=== PATIENT | male | born 1970 | race Native Hawaiian/Other Pacific Islander ===

== ENCOUNTER 2017-01-29 17:04 | Inpatient (IN) | payer BC ==
[~2017-01-29] VITALS: Ht 182.9 cm; Wt 104.6 kg
[2017-01-29] MEDS ORDERED: IOHEXOL 350 MG/ML 10 ML VIAL (for RAD DIAG) IVCONTRAST ONE (17:05)
[2017-01-29 17:06] VITALS: BP 143/86; PULSE 113; RESP 18; TEMP 98.6; O2SAT 94
[2017-01-29] MEDS ORDERED: SODIUM CHLORIDE 0.9% FLUSH 10 ML FLUSH IVF PRN (17:30)
--- NOTE | 2017-01-29 17:54 | PD ---
HPI Chief Complaint: Syncope/Near-Syncope Time Seen by Provider: 17:13 Travel History International Travel<30 days: No Contact w/Intl Traveler<30days: No Traveled to known affect area: No History of Present Illness HPI 46-year-old male came to the emergency room with history of 1 week of shortness of breath and cough. Patient was seen by his primary care doctor yesterday and he was given a shot of antibiotic and a prescription of 500 mg Zithromax for 7 days. He was diagnosed with pneumonia by his primary care. Patient took the first dose of the antibiotic today. He says that he was walking when he got short of breath and passed out. When he had the syncopal episode he hit his head which has caused a bruising on his head at this point. Currently he is fully awake. He also says that for past couple days he's been having bilateral subcostal margin pain anteriorly especially after ambulation for some distance. Patient was tachycardic in triage. Sats were 94% on room air. Patient is not on any other medications. No long distance travel or procedures recently. No history of fever or chills. [facility] Past Medical History Narrative Medical Rest of his past medical, surgical, social and family history is reviewed from the nursing note. Allergies-Medications (Allergen,Severity, Reaction): Coded Allergies: azithromycin (Verified Allergy, Severe, SHORTNESS OF BREATH , 01/29/17) Comments List of his allergies reviewed from the nursing note. Narrative Medication Awaiting for the nurse to do the medical reconciliation Review of Systems Except as stated in HPI: all other systems reviewed are Neg Physical Exam Narrative GENERAL: Awake, alert, anxious, moderate distress SKIN: Focused skin assessment warm/dry. HEAD: Atraumatic. Normocephalic. Scalp contusion EYES: Pupils equal and round. No scleral icterus. No injection or drainage. ENT: No nasal bleeding or discharge. Mucous membranes pink and moist. NECK: Trachea midline. No JVD. CARDIOVASCULAR: Regular rate and rhythm. No murmur appreciated. RESPIRATORY: No accessory muscle use. Clear to auscultation. Breath sounds equal bilaterally. GASTROINTESTINAL: Abdomen soft, non-tender, nondistended. Hepatic and splenic margins not palpable. MUSCULOSKELETAL: No obvious deformities. No clubbing. No cyanosis. No edema. NEUROLOGICAL: Awake and alert. No obvious cranial nerve deficits. Motor grossly within normal limits. Normal speech. PSYCHIATRIC: Appropriate mood and affect; insight and judgment normal. Data Data Last Documented VS Vital Signs Date Time Temp Pulse Resp B/P (MAP) Pulse Ox O2 Delivery O2 Flow Rate FiO2 01/29/17:17 100 18 141/97 (112) 96 01/29/17 18:15 Room Air 01/29/17 17:06 98.6 Orders Orders Complete Blood Count With Diff (01/29/17:) Basic Metabolic Panel (Bmp) (01/29/17) Prothrombin Time / Inr (Pt) (01/29/17) Troponin I (01/29/17) Blood Culture (01/29/17) Iv Access Insert/Monitor (01/29/17) Electrocardiogram (01/29/17) Ecg Monitoring (01/29/17) Oximetry (01/29/17) Oxygen Administration (01/29/17:) Ct Pulmonary Angiogram (01/29/17:) Sodium Chloride 0.9% Flush (Ns Flush) (01/29/17 17:30) Ct Brain W/O Iv Contrast(Rout) (01/29/17 ) Heparin Infusion PROMISE.Q1H (01/29/17 19:26) Heparin Inj (Heparin Inj) (01/29/17 19:30) Heparin Inj (Heparin Inj) (01/30/17 01:30) Heparin Inj (Heparin Inj) (01/30/17 01:30) Heparin-D5w 25,000 U/250 Ml (Heparin-D5w (01/29/17 19:30) Act Partial Throm Time (Ptt) (01/29/17 19:26) Cbc No Diff, Includes Plts (01/29/17 19:26) Cbc No Diff, Includes Plts (02/01/17 06:00) Act Partial Throm Time (Ptt) (01/30/17 02:26) Occult Blood (Hemoccult) Stool (01/29/17 19:26) Labs Laboratory Tests Test 01/29/17 18:00 White Blood Count 6.5 TH/MM3 Red Blood Count 4.67 MIL/MM3 Hemoglobin 14.6 GM/DL Hematocrit 40.4 % Mean Corpuscular Volume 86.5 FL Mean Corpuscular Hemoglobin 31.1 PG Mean Corpuscular Hemoglobin Concent 36.0 % Red Cell Distribution Width 12.4 % Platelet Count 162 TH/MM3 Mean Platelet Volume 8.3 FL Neutrophils (%) (Auto) 72.3 % Lymphocytes (%) (Auto) 15.7 % Monocytes (%) (Auto) 9.9 % Eosinophils (%) (Auto) 1.5 % Basophils (%) (Auto) 0.6 % Neutrophils # (Auto) 4.7 TH/MM3 Lymphocytes # (Auto) 1.0 TH/MM3 Monocytes # (Auto) 0.6 TH/MM3 Eosinophils # (Auto) 0.1 TH/MM3 Basophils # (Auto) 0.0 TH/MM3 CBC Comment AUTO DIFF Differential Comment AUTO DIFF CONFIRMED Platelet Estimate NORMAL Platelet Morphology Comment NORMAL Prothrombin Time 11.3 SEC Prothromb Time International Ratio 1.0 RATIO Blood Urea Nitrogen 13 MG/DL Creatinine 0.75 MG/DL Random Glucose 100 MG/DL Calcium Level 8.7 MG/DL Sodium Level 139 MEQ/L Potassium Level 3.7 MEQ/L Chloride Level 109 MEQ/L Carbon Dioxide Level 20.5 MEQ/L Anion Gap 10 MEQ/L Estimat Glomerular Filtration Rate 112 ML/MIN Troponin I 0.27 NG/ML MDM Medical Decision Making Medical Screen Exam Complete: Yes Emergency Medical Condition: Yes Medical Record Reviewed: Yes Interpretation(s) Twelve-lead EKG was reviewed by me. Normal sinus rhythm, left axis deviation, poor R-wave progression, tachycardia, nonspecific ST-T wave changes. Heart rate of 108 bpm. Differential Diagnosis Orthostatic syncope, PE, pneumonia, cardiac arrhythmia, ACS Narrative Course 5:53 PM awaiting for the blood test results. I have ordered a CT pulmonary angiogram since my suspicion is high for PE given the symptoms. Next 7:50 PM blood test report is back. Troponin is elevated. Awaiting for CT scan of the head and CT pulmonary angiogram. Patient will be started on heparin bolus and drip based on the troponin. He will need to be admitted once the scan is done and reported. Procedures EKG Prior to Arrival: Nubia Mitchell MD Jan 29, 2017 17:54
[2017-01-29 18:15] VITALS: O2SAT 98
[2017-01-29 18:47] LABS: AUTOMATED NEUTROPHIL # 4.7 TH/MM3 (1.8-7.7); BASOPHIL % 0.6 % (0.0-2.0); EOSINOPHIL # 0.1 TH/MM3 (0-0.4); EOSINOPHIL % 1.5 % (0.0-4.0); HEMATOCRIT 40.4 % (39.0-51.0); LYMPH % 15.7 % (9.0-44.0); MEAN CELL VOLUME 86.5 FL (80.0-100.0); MEAN CORPUSCULAR HEMOGLOBIN 31.1 PG (27.0-34.0); MONO % 9.9 % (0.0-8.0); NEUT % 72.3 % (16.0-70.0); PLATELET COUNT 162 TH/MM3 (150-450); RED BLOOD COUNT 4.67 MIL/MM3 (4.50-5.90); RED CELL DISTRIBUTION WIDTH 12.4 % (11.6-17.2); WHITE BLOOD COUNT 6.5 TH/MM3 (4.0-11.0)
[2017-01-29 18:55] LABS: HEMO FLAGS AUTO DIFF
[2017-01-29 19:00] LABS: PROTHROMBIN TIME - PATIENT 11.3 SEC (9.8-11.6)
[2017-01-29 19:02] LABS: BICARBONATE 20.5 MEQ/L (21.0-32.0); POTASSIUM 3.7 MEQ/L (3.5-5.1)
[2017-01-29 19:17] VITALS: BP 141/97; PULSE 100; RESP 18; O2SAT 96
[2017-01-29 19:29] LABS: PLATELET ESTIMATE SMEAR NORMAL (NORMAL); PLATELET MORPHOLOGY NORMAL (NORMAL); SCAN/DIFF AUTO DIFF CONFIRMED
[2017-01-29] MEDS ORDERED: HEPARIN-D5W 25,000 U/250 ML 250 ML IV ONE (19:30)
[2017-01-29] MEDS ORDERED: HEPARIN SODIUM - IV 10,000 UNITS/10 ML VIAL IV ONE (19:30)
[2017-01-29 20:26] LABS: HEMATOCRIT 41.5 % (39.0-51.0); MEAN CORPUSCULAR HGB CONC 34.5 % (32.0-36.0); PLATELET COUNT 178 TH/MM3 (150-450); RED BLOOD COUNT 4.78 MIL/MM3 (4.50-5.90); RED CELL DISTRIBUTION WIDTH 12.8 % (11.6-17.2); REVIEW FLAG FINAL; WHITE BLOOD COUNT 6.7 TH/MM3 (4.0-11.0)
--- NOTE | 2017-01-29 20:32 | PD ---
Data Data Last Documented VS Vital Signs Date Time Temp Pulse Resp B/P (MAP) Pulse Ox O2 Delivery O2 Flow Rate FiO2 01/29/17:17 100 18 141/97 (112) 96 01/29/17 18:15 Room Air 01/29/17 17:06 98.6 Orders Orders Complete Blood Count With Diff (01/29/17 17:22) Basic Metabolic Panel (Bmp) (01/29/17:) Prothrombin Time / Inr (Pt) (01/29/17) Troponin I (01/29/17:) Blood Culture (01/29/17:) Iv Access Insert/Monitor (01/29/17) Electrocardiogram (01/29/17) Ecg Monitoring (01/29/17) Oximetry (01/29/17) Oxygen Administration (01/29/17:) Ct Pulmonary Angiogram (01/29/17:) Sodium Chloride 0.9% Flush (Ns Flush) (01/29/17 17:30) Ct Brain W/O Iv Contrast(Rout) (01/29/17 ) Heparin Infusion PROMISE.Q1H (01/29/17 19:26) Heparin Inj (Heparin Inj) (01/29/17 19:30) Heparin Inj (Heparin Inj) (01/30/17 01:30) Heparin Inj (Heparin Inj) (01/30/17 01:30) Heparin-D5w 25,000 U/250 Ml (Heparin-D5w (01/29/17 19:30) Act Partial Throm Time (Ptt) (01/29/17 19:26) Cbc No Diff, Includes Plts (01/29/17 19:26) Cbc No Diff, Includes Plts (02/01/17 06:00) Act Partial Throm Time (Ptt) (01/30/17 02:26) Occult Blood (Hemoccult) Stool (01/29/17 19:26) Iohexol 350 Inj (Omnipaque 350 Inj) (01/29/17 17:05) Admit Order (Ed Use Only) (01/29/17 22:14) Labs Laboratory Tests Test 01/29/17 18:00 01/29/17 19:55 White Blood Count 6.5 TH/MM3 6.7 TH/MM3 Red Blood Count 4.67 MIL/MM3 4.78 MIL/MM3 Hemoglobin 14.6 GM/DL 14.3 GM/DL Hematocrit 40.4 % 41.5 % Mean Corpuscular Volume 86.5 FL 87.0 FL Mean Corpuscular Hemoglobin 31.1 PG 30.0 PG Mean Corpuscular Hemoglobin Concent 36.0 % 34.5 % Red Cell Distribution Width 12.4 % 12.8 % Platelet Count 162 TH/MM3 178 TH/MM3 Mean Platelet Volume 8.3 FL 8.0 FL Neutrophils (%) (Auto) 72.3 % Lymphocytes (%) (Auto) 15.7 % Monocytes (%) (Auto) 9.9 % Eosinophils (%) (Auto) 1.5 % Basophils (%) (Auto) 0.6 % Neutrophils # (Auto) 4.7 TH/MM3 Lymphocytes # (Auto) 1.0 TH/MM3 Monocytes # (Auto) 0.6 TH/MM3 Eosinophils # (Auto) 0.1 TH/MM3 Basophils # (Auto) 0.0 TH/MM3 CBC Comment AUTO DIFF Differential Comment AUTO DIFF CONFIRMED Platelet Estimate NORMAL Platelet Morphology Comment NORMAL Prothrombin Time 11.3 SEC Prothromb Time International Ratio 1.0 RATIO Blood Urea Nitrogen 13 MG/DL Creatinine 0.75 MG/DL Random Glucose 100 MG/DL Calcium Level 8.7 MG/DL Sodium Level 139 MEQ/L Potassium Level 3.7 MEQ/L Chloride Level 109 MEQ/L Carbon Dioxide Level 20.5 MEQ/L Anion Gap 10 MEQ/L Estimat Glomerular Filtration Rate 112 ML/MIN Troponin I 0.27 NG/ML Activated Partial Thromboplast Time 25.[address] [facility] Medical Record Reviewed: Yes Supervised Visit with [place]: No Interpretation(s) Last Impressions CT Angiography 01/29/17 1722 Signed Impressions: Service Date/Time: Sunday, January 29, 2017 20:12 - CONCLUSION: Extensive PE. Ru Barahona MD Head CT 01/29/17 0000 Signed Impressions: Service Date/Time: Sunday, January 29, 2017 20:07 - CONCLUSION: Unremarkable study. Ru Barahona MD Narrative Course During the course of the patients emergency department visit, the patients history, examination, and differential diagnosis were reviewed with the patient. The patient had IV access obtained and blood work sent for analysis. The patient was placed on a manager cardiac with oximetry and blood pressure monitoring. The patient's case was checked out to me by Dr. Robins at the conclusion of her shift. Please see her complete history and physical. The patient reportedly has been experiencing chest pain and shortness of breath. The patient has been on antibiotic area the patient had a syncopal event earlier today. Dr. Robins recommended admission for continued evaluation and treatment. The patient was initially provided a bolus of heparin, however the heparin drip was held until the patient had a completed CT scan to rule out intracranial hemorrhage. The patients laboratory studies were reviewed and remarkable for a white count of 6.5, hemoglobin 14.6, platelets 162 with 72.3 neutrophils, monocytes 9.9. Basic metabolic profile is remarkable for chloride of 109, CO2 20.5, troponin I is elevated at 0.27 which could be related to a non-STEMI, versus PE. A CTA to rule out PE was ordered. PT 11.3, PTT 25.6. Radiology studies were reviewed and remarkable for [a CT scan of the brain that shows no acute abnormality. CTA to rule out PE shows extensive pulmonary embolism. The patient's heparin drip was started. The patients results were discussed with the patient, including the plan of care. I explained that further testing and/ or monitoring is indicated based on the patients history, examination, and/ or laboratory findings. Therefore, I recommended admission for additional evaluation. The patient expressed understanding and was agreeable with this plan. The patient was admitted to the hospital in stable condition and [facility] Physician Communication Physician Communication The patient's case is discussed with Dr. Rojas who did agree to admit the patient for further evaluation and treatment at this time. Diagnosis Primary Impression: Pulmonary embolism Qualified Codes: I26.99 - Other pulmonary embolism without acute cor pulmonale Admitting Information Admitting Physician Requests: Admit Sonia Santiago MD Jan 29, 2017 20:31
[2017-01-29 20:37] LABS: APTT (PATIENT) 25.6 SEC (24.3-30.1)
--- NOTE | 2017-01-29 20:43 | RADRPT ---
EXAM DATE/TIME: 01/29/2017 20:12 [facility] COMPARISON: No previous studies available for comparison. INDICATIONS : Short of breath, embolism. IV CONTRAST: 69 cc Omnipaque 350 (iohexol) IV RADIATION DOSE: 19.97 CTDIvol (mGy) MEDICAL HISTORY : None SURGICAL HISTORY : None. ENCOUNTER: Initial ACUITY: 1 day PAIN SCALE: 2/10 LOCATION: Bilateral chest TECHNIQUE: Volumetric scanning of the chest was performed using a pulmonary embolism protocol MIP images were re constructed. Using automated exposure control and adjustment of the mA and/or kV according to patien t size, radiation dose was kept as low as reasonably achievable to obtain optimal diagnostic quality images. DICOM format image data is available electronically for review and comparison. Follow-up recommendations for detected pulmonary nodules are based at a minimum on nodule size and pa tient risk factors according to Fleischner Society Guidelines. FINDINGS: There is extensive pulmonary embolus involving bilateral upper lobe lower lobe pulmonary arterie s in addition to bilateral main pulmonary arteries worse on the right. There is slight infiltrate in right lower lobe and lingula. There is no pleural effusion. CONCLUSION: Extensive PE. Ru Barahona MD on January 29, 2017 at 20:40 Board Certified Radiologist. This report was verified electronically.
--- NOTE | 2017-01-29 20:48 | RADRPT ---
EXAM DATE/TIME: 01/29/2017 20:07 [facility] COMPARISON: No previous studies available for comparison. INDICATIONS : Head pain due to fall and syncopal episode. RADIATION DOSE: 56.35 CTDIvol (mGy) MEDICAL HISTORY : None SURGICAL HISTORY : None. ENCOUNTER: Initial ACUITY: 1 day PAIN SCALE: 3/10 LOCATION: Bilateral cranial TECHNIQUE: Multiple contiguous axial images were obtained of the head. Using automated exposure control and adj ustment of the mA and/or kV according to patient size, radiation dose was kept as low as reasonably a chievable to obtain optimal diagnostic quality images. DICOM format image data is available electro nically for review and comparison. FINDINGS: There is no evidence for intracranial hemorrhage, mass effect, mass lesions, edema, or extra-axial fl uid collections. The visualized bony structures appear intact. The ventricles are normal size for t he patient's age. There are no signs of acute infarction for technique. CONCLUSION: Unremarkable study. Ru Barahona MD on January 29, 2017 at 20:46 Board Certified Radiologist. This report was verified electronically.
[2017-01-29] MEDS ORDERED: NALOXONE HCL 0.4 MG/ML AMP IV PUSH PRN (22:45)
[2017-01-29] MEDS ORDERED: SODIUM CHLORIDE 0.9% FLUSH 10 ML FLUSH IV FLUSH PRN (22:45)
[2017-01-29 23:44] VITALS: BP 116/87; PULSE 102; RESP 16; O2SAT 96
[2017-01-30] VITALS (9 sets, daily range): BP systolic 116–138; BP diastolic 80–88; PULSE 97–108; RESP 18–24; TEMP 97.9–99.3; O2SAT 95–96
[2017-01-30] MEDS ORDERED: HEPARIN SODIUM - IV 10,000 UNITS/10 ML VIAL IV PRN ×2 (01:30)
[2017-01-30 03:40] LABS: AUTOMATED NEUTROPHIL # 3.7 TH/MM3 (1.8-7.7); BASOPHIL % 0.4 % (0.0-2.0); EOSINOPHIL # 0.1 TH/MM3 (0-0.4); EOSINOPHIL % 2.1 % (0.0-4.0); HEMATOCRIT 40.6 % (39.0-51.0); HEMO FLAGS DIFF FINAL; LYMPH % 25.2 % (9.0-44.0); LYMPHOCYTE # 1.5 TH/MM3 (1.0-4.8); MEAN CELL VOLUME 87.2 FL (80.0-100.0); MEAN CORPUSCULAR HEMOGLOBIN 30.3 PG (27.0-34.0); MEAN CORPUSCULAR HGB CONC 34.8 % (32.0-36.0); MONO % 10.7 % (0.0-8.0); NEUT % 61.6 % (16.0-70.0); PLATELET COUNT 164 TH/MM3 (150-450); RED BLOOD COUNT 4.65 MIL/MM3 (4.50-5.90); RED CELL DISTRIBUTION WIDTH 12.6 % (11.6-17.2)
[2017-01-30 03:50] LABS: POTASSIUM 3.7 MEQ/L (3.5-5.1)
[2017-01-30 03:55] LABS: APTT (PATIENT) 36.4 SEC (24.3-30.1)
--- NOTE | 2017-01-30 05:58 | HHI.HP ---
[facility] Noel Robles MD Admission Diagnosis Pulmonary embolism Diagnoses: (1) Pulmonary embolism Chief Complaint: shortness of breath Travel History International Travel<30 Days: No Contact w/Intl Traveler <30 Da: No Traveled to Known Affected Are: No History of Present Illness Written by Nohemi Marmolejo, acting as scribe for Dr. Rojas on 01/30/17 at 05:58. Since last has had severe shortness of breath that worsened over the weekend. PCP placed him on antibiotics on Saturday but symptoms did not improve. No recent extended travel or surgeries. Denies fevers. He had a syncopal episode yesterday and hit his head - head CT in ED was negative. Review of Systems Except as stated in HPI: all other systems reviewed are Neg Past Family Social History Past Medical History Nephrolithiasis 3 years ago Seasonal allergies Denies hypertension, diabetes mellitus, CAD, CHF, respiratory problems, liver problems, DVT, PE, CVA, seizures, thyroid dysfunction, or cancers . Past Surgical History Never . Reported Medications Vitamins . Allergies: Coded Allergies: azithromycin (Verified Allergy, Severe, SHORTNESS OF BREATH , 01/29/17) Active Ordered Medications Current Medications Sodium Chloride (NS Flush) 2 ml UNSCH PRN IVF FLUSH AFTER USING IV ACCESS; Start 01/29/17 at 17:30; Stop 01/29/17 at 22:41; Status DC Heparin Sodium (Porcine) (Heparin Inj) 8,000 units ONCE ONCE IV Last administered on 01/29/17t 19:41; Start 01/29/17 at 19:30; Stop 01/29/17 at 19 :31; Status DC Heparin Sodium (Porcine) (Heparin Inj) 5,000 units UNSCH PRN IV APTT LESS THAN 25; Start 01/30/17 at 01:30 Heparin Sodium (Porcine) (Heparin Inj) 2,500 units UNSCH PRN IV APTT 25 TO 39; Start 01/30/17 at 01:30 Heparin Sodium/ Dextrose 250 ml @ 10 mls/hr TITRATE ONCE IV Last administered on 01/29/17 22:20; Start 01/29/17 at 19:30; Stop 01/30/17 at 20 :29 Iohexol (Omnipaque 350 Inj) 69 ml STK-MED ONCE IVCONTRAST Last administered on 01/29/17t 17:05; Start 01/29/17 at 17:05; Stop 01/29/17 at 20:20; Status DC Sodium Chloride (NS Flush) 2 ml UNSCH PRN IV FLUSH FLUSH AFTER USING IV ACCESS ; Start 01/29/17 at 22:45 Sodium Chloride (NS Flush) 2 ml BID IV FLUSH ; Start 01/30/17 at 09:00 Naloxone HCl (Narcan Inj) 0.4 mg UNSCH PRN IV PUSH SEE LABEL COMMENTS; Start 01/29/17 at 22:45 . Family History Diabetes Mellitus Son with asthma Denies family history of frequent miscarriages . 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 Physical Exam Vital Signs Vital Signs Date Time Temp Pulse Resp B/P (MAP) Pulse Ox O2 Delivery O2 Flow Rate FiO2 01/30/17 04:33 97.9 102 18 116/80 (92) 96 01/29/17 23:44 102 16 116/87 (97) 96 Room Air 01/29/17 23:44 01/29/17 19:17 100 18 141/97 (112) 96 01/29/17 18:15 82 18 98 Room Air 01/29/17 18:15 98 Room Air 01/29/17 18:15 98 Room Air 01/29/17 17:06 98.6 113 18 143/86 (105) 94 Room Air Physical Exam GENERAL: This is a male patient, in no apparent distress. SKIN: No rashes, ecchymoses or lesions. Cool and dry. HEAD: Normocephalic. Small area of bruising. EYES: No scleral icterus. No injection or drainage. ENT: Nose without bleeding, purulent drainage. Airway patent. NECK: Trachea midline. CARDIOVASCULAR: Regular rate and rhythm without murmurs, gallops, or rubs. RESPIRATORY: Clear to auscultation. Breath sounds equal bilaterally. No wheezes , rales, or rhonchi. GASTROINTESTINAL: Abdomen soft, non-tender, nondistended. No guarding. MUSCULOSKELETAL: Extremities without clubbing, cyanosis, or edema. No calf tenderness. NEUROLOGICAL: Awake and alert. Motor and sensory grossly within normal limits. Normal speech. . Laboratory Laboratory Tests Test 01/29/17 18:00 01/29/17 19:55 01/30/17 03:17 White Blood Count 6.5 6.7 6.0 Red Blood Count 4.67 4.78 4.65 Hemoglobin 14.6 14.3 14.1 Hematocrit 40.4 41.5 40.6 Mean Corpuscular Volume 86.5 87.0 87.2 Mean Corpuscular Hemoglobin 31.1 30.0 30.3 Mean Corpuscular Hemoglobin Concent 36.0 34.5 34.8 Red Cell Distribution Width 12.4 12.8 12.6 Platelet Count 162 178 164 Mean Platelet Volume 8.3 8.0 8.2 Neutrophils (%) (Auto) 72.3 61.6 Lymphocytes (%) (Auto) 15.7 25.2 Monocytes (%) (Auto) 9.9 10.7 Eosinophils (%) (Auto) 1.5 2.1 Basophils (%) (Auto) 0.6 0.4 Neutrophils # (Auto) 4.7 3.7 Lymphocytes # (Auto) 1.0 1.5 Monocytes # (Auto) 0.6 0.6 Eosinophils # (Auto) 0.1 0.1 Basophils # (Auto) 0.0 0.0 CBC Comment AUTO DIFF DIFF FINAL Differential Comment AUTO DIFF CONFIRMED Platelet Estimate NORMAL Platelet Morphology Comment NORMAL Prothrombin Time 11.3 Prothromb Time International Ratio 1.0 Blood Urea Nitrogen 13 9 Creatinine 0.75 0.68 Random Glucose 100 95 Calcium Level 8.7 8.4 Sodium Level 139 141 Potassium Level 3.7 3.7 Chloride Level 109 109 Carbon Dioxide Level 20.5 24.0 Anion Gap 10 8 Estimat Glomerular Filtration Rate 112 126 Troponin I 0.27 Activated Partial Thromboplast Time 25.6 36.4 Date/Time Source Procedure Growth Status 01/29/17 18:00 Blood Peripheral Aerobic Blood Culture Pending Received 01/29/17 18:00 Blood Peripheral Anaerobic Blood Culture Pending Received Result Diagram: 01/30/177 01/30/[address] Angiography 01/29/17 1132 Signed Impressions: Service Date/Time: Sunday, January 29, 2017 20:12 - CONCLUSION: Extensive PE. Ru Barahona MD Head CT 01/29/17 0000 Signed Impressions: Service Date/Time: Sunday, January 29, 2017 20:07 - CONCLUSION: Unremarkable study. MD Frankie Miller VTE Risk Assessment Frankie VTE Risk Assessment: Mod/High Risk (score >= 2) Caprini Risk Assessment Model Point Value = 1 Point Value = 2 Point Value = 3 Point Value = 5 Age 41-60 Minor surgery BMI > 25 kg/m2 Swollen legs Varicose veins or History of unexplained or recurrent spontaneous Oral contraceptives or hormone replacement Sepsis (< 1 month) Serious lung disease, including pneumonia (< 1 month) Abnormal pulmonary function Acute myocardial infarction Congestive heart failure (< 1 month) History of inflammatory bowel disease Medical patient at bed rest Age 61-74 Arthroscopic surgery Major open surgery (> 45 min) Laparoscopic surgery (> 45 min) Malignancy Confined to bed (> 72 hours) Immobilizing plaster cast Central venous access Age >= 75 History of VTE Family history of VTE Factor V Leiden Prothrombin [id number] Lupus anticoagulant Anticardiolipin antibodies Elevated serum homocysteine Heparin-induced thrombocytopenia Other congenital or acquired thrombophilia Stroke (< 1 month) Elective arthroplasty Hip, pelvis, or leg fracture Acute spinal cord injury (< 1 month) Prophylaxis Regimen Total Risk Factor Score Risk Level Prophylaxis Regimen 0-1 Low Early ambulation 2 Moderate Order ONE of the following: *Sequential Compression Device (SCD) *Heparin 5000 units SQ BID 3-4 Higher Order ONE of the following medications: *Heparin 5000 units SQ TID *Enoxaparin/Lovenox 40 mg SQ daily (WT < 150 kg, CrCl > 30 mL/min) *Enoxaparin/Lovenox 30 mg SQ daily (WT < 150 kg, CrCl > 10-29 mL/min) *Enoxaparin/Lovenox 30 mg SQ BID (WT < 150 kg, CrCl > 30 mL/min) AND/OR *Sequential Compression Device (SCD) 5 or more Highest Order ONE of the following medications: *Heparin 5000 units SQ TID (Preferred with Epidurals) *Enoxaparin/Lovenox 40 mg SQ daily (WT < 150 kg, CrCl > 30 mL/min) *Enoxaparin/Lovenox 30 mg SQ daily (WT < 150 kg, CrCl > 10-29 mL/min) *Enoxaparin/Lovenox 30 mg SQ BID (WT < 150 kg, CrCl > 30 mL/min) AND *Sequential Compression Device (SCD) Assessment and Plan Problem List: (1) Pulmonary embolism ICD Code: I26.99 - Other pulmonary embolism without acute cor pulmonale Assessment and Plan 46 year-old male with progressively worsening shortness of breath: Bilateral pulmonary embolism, extensive - CT PA showed extensive bilateral PE - Heparin drip - bed rest - monitor vital signs q4h - consult mixer driver to check for genetic disorders causing hypercoagulability - continuous cardiac telemetry to monitor for cardiac arrhythmias and to monitor heart rate - bilateral lower extremity Doppler to evaluate for DVT Syncope secondary to extensive PE Troponin I elevation likely secondary to right heart strain - check echocardiogram to evaluate cardiac structure and function given suspected right heart strain - will recheck Troponin I level - follow results Discussed Condition With ER physician and patient . Physician Certification 2 Midnight Certification Type: Admission for Inpatient Services Order for Inpatient Services The services are ordered in accordance with Medicare regulations or non- Medicare payer requirements, as applicable. In the case of services not specified as inpatient-only, they are appropriately provided as inpatient services in accordance with the 2-midnight benchmark. Estimated LOS (days): 3 days is the estimated time the patient will need to remain in the hospital, assuming treatment plan goals are met and no additional complications. Post-Hospital Plan: Home Problem Qualifiers (1) Pulmonary embolism: Nohemi Marmolejo Jan 30, 2017 05:58
--- NOTE | 2017-01-30 09:00 | RADRPT ---
EXAM DATE/TIME: 01/30/2017 07:44 [place] COMPARISON: No previous studies available for comparison. INDICATIONS : Extensive pulmonary embolism. MEDICAL HISTORY : Renal calculi. Pulmonary embolism. Cardiac disorders. Chest pain. Pneumonia. SURGICAL HISTORY : None. ENCOUNTER: Initial ACUITY: 1 day PAIN SCORE: 0/10 LOCATION: Bilateral leg. TECHNIQUE: Venous ultrasound of the left and right leg was performed from the inguinal ligament to the proximal calf. Real-time, color Doppler and spectral tracing, compression and augmentation techniques were us ed. FINDINGS: RIGHT LEG: There is normal compressibility of the deep venous system from the inguinal region to the proximal ca lf. No echogenic clot is seen in the lumen of the common femoral, femoral, popliteal, and posterior tibial veins. There is a normal response of the venous system to proximal and distal augmentation an d respiration. LEFT LEG: Deep venous system of the left lower extremity is incompletely compressible throughout its course. On Doppler interrogation, there is some flow identified in the SMV from the bifurcation to the mid vess el with no flow identified in the lower half of the SFV, trace flow in the popliteal and no detectabl e flow in the trifurcation tributaries. CONCLUSION: 1. Extensive deep venous thrombosis throughout the left lower extremity from the femoral bifurcation peripherally to the trifurcation tributaries. 2. Thrombus is nonocclusive from the mid SFV and centrally to the bifurcation, trace flow in the popl iteal and occlusive disease in the trifurcation tributaries and the peripheral SFV. James Cardona MD on January 30, 2017 at 8:52 Board Certified Radiologist. This report was verified electronically.
--- NOTE | 2017-01-30 11:06 | HHI.PR ---
Subjective History of Present Illness Patient feel better today no acute issue. Review of Systems Constitutional Constitutional Remarks All ROS Normal. Vitals/Results Vital Signs Vital Signs Date Time Temp Pulse Resp B/P (MAP) Pulse Ox O2 Delivery O2 Flow Rate FiO2 01/30/17 08:25 98.7 101 24 138/83 (101) 95 01/30/17 04:33 97.9 102 18 116/80 (92) 96 01/29/17 23:44 102 16 116/87 (97) 96 Room Air 01/29/17 23:44 01/29/17 19:17 100 18 141/97 (112) 96 01/29/17 18:15 82 18 98 Room Air 01/29/17 18:15 98 Room Air 01/29/17 18:15 98 Room Air 01/29/17 17:06 98.6 113 18 143/86 (105) 94 Room Air CBC/BMP: 01/30/17 0317 01/30/17 0317 Lab Results Laboratory Tests Test 01/29/17 18:00 01/29/17 19:55 01/30/17 03:17 White Blood Count 6.5 TH/MM3 6.7 TH/MM3 6.0 TH/MM3 Red Blood Count 4.67 MIL/MM3 4.78 MIL/MM3 4.65 MIL/MM3 Hemoglobin 14.6 GM/DL 14.3 GM/DL 14.1 GM/DL Hematocrit 40.4 % 41.5 % 40.6 % Mean Corpuscular Volume 86.5 FL 87.0 FL 87.2 FL Mean Corpuscular Hemoglobin 31.1 PG 30.0 PG 30.3 PG Mean Corpuscular Hemoglobin Concent 36.0 % 34.5 % 34.8 % Red Cell Distribution Width 12.4 % 12.8 % 12.6 % Platelet Count 162 TH/MM3 178 TH/MM3 164 TH/MM3 Mean Platelet Volume 8.3 FL 8.0 FL 8.2 FL Neutrophils (%) (Auto) 72.3 % 61.6 % Lymphocytes (%) (Auto) 15.7 % 25.2 % Monocytes (%) (Auto) 9.9 % 10.7 % Eosinophils (%) (Auto) 1.5 % 2.1 % Basophils (%) (Auto) 0.6 % 0.4 % Neutrophils # (Auto) 4.7 TH/MM3 3.7 TH/MM3 Lymphocytes # (Auto) 1.0 TH/MM3 1.5 TH/MM3 Monocytes # (Auto) 0.6 TH/MM3 0.6 TH/MM3 Eosinophils # (Auto) 0.1 TH/MM3 0.1 TH/MM3 Basophils # (Auto) 0.0 TH/MM3 0.0 TH/MM3 CBC Comment AUTO DIFF DIFF FINAL Differential Comment AUTO DIFF CONFIRMED Platelet Estimate NORMAL Platelet Morphology Comment NORMAL Prothrombin Time 11.3 SEC Prothromb Time International Ratio 1.0 RATIO Blood Urea Nitrogen 13 MG/DL 9 MG/DL Creatinine 0.75 MG/DL 0.68 MG/DL Random Glucose 100 MG/DL 95 MG/DL Calcium Level 8.7 MG/DL 8.4 MG/DL Sodium Level 139 MEQ/L 141 MEQ/L Potassium Level 3.7 MEQ/L 3.7 MEQ/L Chloride Level 109 MEQ/L 109 MEQ/L Carbon Dioxide Level 20.5 MEQ/L 24.0 MEQ/L Anion Gap 10 MEQ/L 8 MEQ/L Estimat Glomerular Filtration Rate 112 ML/MIN 126 ML/MIN Troponin I 0.27 NG/ML 0.12 NG/ML Activated Partial Thromboplast Time 25.6 SEC 36.4 SEC Microbiology Microbiology 01/29/17 Aerobic Blood Culture, Received Pending 01/29/17 Anaerobic Blood Culture, Received Pending 01/29/17 Aerobic Blood Culture, Received Pending 01/29/17 Anaerobic Blood Culture, Received Pending Physical Exam General General Appearance: Well Developed, Well Nourished, No Acute Distress, Comfortable Eyes Eye Exam: Pupils Equal, Pupils Reactive, Sclera White, Extraocular Movement Intact Throat Throat Exam: Oral Mucosa [place] & Moist, Oral Pharynx Normal Neck Neck Exam: Neck Supple, Trachea Midline Pulmonary Resp Exam: Clear Bilaterally, Breath Sounds Equal, No Distress Cardiology CV Exam: Regular, Normal Sinus Rhythm Gastrointestinal/Abdomen GI Exam: Soft, Non-Tender, Bowel Sounds Present Musculoskeletal MS Exam: Joints Intact Integumentary Skin Exam: Clear, Warm, Dry, Intact, Normal Turgor Extremeties Extremities Exam: No Edema Neurologic Neuro Exam: Alert, Awake, Oriented, Speech Clear, Moving All Extremities, History Instructor Equal, No Focal Deficits Psychiatric Psych Exam: Appropriate Responses VTE Prophylaxis VTE Prophylaxis Meds: Heparin PUD Prophylasis PUD Prophylaxis: Protonix Assessment/Plan Problem List: (1) Pulmonary embolism ICD Codes: I26.99 - Other pulmonary embolism without acute cor pulmonale Assessment/Plan Assessment and Plan (1) Pulmonary embolism ICD Code: I26.99 - Other pulmonary embolism without acute cor pulmonale Assessment and Plan 46 year-old male with progressively worsening shortness of breath: Bilateral pulmonary embolism, extensive - CT PA showed extensive bilateral PE - Heparin drip - bed rest - monitor vital signs q4h - consult private chef to check for genetic disorders causing hypercoagulability - continuous cardiac telemetry to monitor for cardiac arrhythmias and to monitor heart rate - bilateral lower extremity Doppler to evaluate for DVT Syncope secondary to extensive PE Troponin I elevation likely secondary to right heart strain - check echocardiogram to evaluate cardiac structure and function given suspected right heart strain - will recheck Troponin I level - follow results Discussed Condition with: Patient Problem Qualifiers (1) Pulmonary embolism: Noel Robles MD Jan 30, 2017 11:06
[2017-01-30] MEDS: SODIUM CHLORIDE 0.9% FLUSH 10 ML FLUSH IV FLUSH SCH ×2 (11:09→22:53)
--- NOTE | 2017-01-30 12:37 | HHI.PR ---
Addendum to Inpatient Note Additional Information This patient was on my list this morning. Before I realized the attending should be Dr. Noel Robles, I already seen and examined patient. We will request attending name change to Dr. Noel Robles. Mr. Sandoval is a pleasant 46 year old male who was admitted due to shortness of breath, congestion. CT PE study shows PE and later doppler US shows extensive left lower ext DVT. Patient is currently on heparin drip. He drove for 8 hours about 2 months ago. However, there are no other possible reasons such as recent surgery, long distance travel. 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 He is not a smoker, no family history of clotting disorders. Essentially, I could not find any provocative factors. Thus, I believe his DVT, PE are unprovoked. Additionally, he complains of congestions that started two days prior to this admission. His PCP gave him Azithromycin. - Bilateral pulmonary embolism - likely unprovoked - Left lower extremity extensive DVT - Continue heparin for now. Consider stopping heparin and starting Apixaban 10mg BID tonight. - Apixaban 10mg BID X 7 days starting tonight then 5mg BID. - Hematology to evaluate patient. Hypercoagulable work up can be done in the outpatient setting. - Probable pneumonia - CT PE study indicates some infiltrates. - Patient has taken Azithromycin 500mg Qday for 2 days prior to this admission. - Can consider Azithromycin or possibly Levaquin 750mg Qday for [address] Noel Robles will likely continue to follow patient. Last Impressions Lower Extremity Ultrasound 01/30/17 0000 Signed Impressions: Service Date/Time: Monday, January 30, 2017 07:44 - CONCLUSION: 1. Extensive deep venous thrombosis throughout the left lower extremity from the femoral bifurcation peripherally to the trifurcation tributaries. 2. Thrombus is nonocclusive from the mid SFV and centrally to the bifurcation, trace flow in the popliteal and occlusive disease in the trifurcation tributaries and the peripheral SFV. James Cardona MD CT Angiography 01/29/17 1722 Signed Impressions: Service Date/Time: Sunday, January 29, 2017 20:12 - CONCLUSION: Extensive PE. Ru Barahona MD Head CT 01/29/17 0000 Signed Impressions: Service Date/Time: Sunday, January 29, 2017 20:07 - CONCLUSION: Unremarkable study. MD Margaret Miller Shahabuddin DO Jan 30, 2017 12:37 pm
[2017-01-30 12:39] LABS: APTT (PATIENT) 33.6 SEC (24.3-30.1)
--- NOTE | 2017-01-30 14:06 | EKG ---
Date Performed: 01/29/2017 Time Performed: 18:07:27 PTAGE: 46 years EKG: SINUS TACHYCARDIA INFERIOR MYOCARDIAL INFARCTION ABNORMAL ECG NO PREVIOUS TRACING DOCTOR: [place] Interpretating Date/Time 01/30/2017 13:57:52
--- NOTE | 2017-01-30 17:10 | ECHRPT ---
Indication: PE, syncope, + trop, right heart strain CONCLUSIONS Normal left ventricular size and wall thickness. The left ventricular systolic function is normal wi th an estimated ejection fraction in the range of 50-55%. Possibly flattened septum in systole and diasto le suggestive of right ventricular pressure overload. The right ventricle is moderately dilated. The right ventricular systoilc function is mild to moderately decreased. There is mild tricuspid valve regurgitation. There is severe pulmonary hypertension present ( systolic pulmonary pressure likely > 70 mmHg). BP: 116 / 80 HR: 102 Rhythm: MEASUREMENTS (Male / Female) Normal Values Technical Quality:Good 2D ECHO LV Diastolic Diameter PLAX 4.3 cm 4.2 - 5.9 / 3.9 - 5.3 cm LV Systolic Diameter PLAX 3.4 cm IVS Diastolic Thickness 1.3 cm 0.6 - 1.0 / 0.6 - 0.9 cm LVPW Diastolic Thickness 0.8 cm 0.6 - 1.0 / 0.6 - 0.9 cm LV Relative Wall Thickness 0.5 RV Internal Dim ED PLAX 3.5 cm M-MODE Aortic Root Diameter MM 3.7 cm AV Cusp Separation MM 2.2 cm DOPPLER Mitral E Point Velocity 55.8 cm/s Mitral A Point Velocity 71.6 cm/s Mitral E to A Ratio 0.8 TR Peak Velocity 407.0 cm/s TR Peak Gradient 66.3 mmHg Right Atrial Pressure 5.0 mmHg Pulmonary Artery Systolic Pressu 71.3 mmHg Right Ventricular Systolic Press 71.3 mmHg FINDINGS LEFT VENTRICLE Normal left ventricular size and wall thickness. The left ventricular systolic function is normal wi th an estimated ejection fraction in the range of 50-55%. Possibly flattened septum in systole and diasto le suggestive of right ventricular pressure overload. RIGHT VENTRICLE The right ventricle is moderately dilated. The right ventricular systoilc function is mild to moderately decreased. LEFT ATRIUM The left atrial size is normal. RIGHT ATRIUM The right atrial size is mildly dilated. ATRIAL SEPTUM Normal atrial septal thickness without atrial level shunting by limited color doppler interrogation. AORTA The aortic root and proximal ascending aorta are normal in size on limited imaging. MITRAL VALVE Structurally normal mitral valve. No mitral valve stenosis or regurgitation. AORTIC VALVE Trileaflet aortic valve. No aortic valve stenosis or regurgitation. TRICUSPID VALVE There is mild tricuspid valve regurgitation. There is severe pulmonary hypertension present ( systolic pulmonary pressure likely > 70 mmHg). PULMONARY VALVE No pulmonary valve regurgitation or stenosis. VESSELS The inferior vena cava is normal in size. PERICARDIUM There is a small pericardial effusion present. No hemodynamically significant echocardiographic features were observed (no pre-tamponade physiology). Brody Gamboa MD (Electronically Signed) Final Date:30 January 2017 17:10
[2017-01-30] MEDS ORDERED: HEPARIN-D5W 25,000 U/250 ML 250 ML IV PRN (21:45)
[2017-01-30 22:38] LABS: APTT (PATIENT) 29.9 SEC (24.3-30.1)
[2017-01-31] VITALS (7 sets, daily range): BP systolic 125–136; BP diastolic 79–88; PULSE 92–100; RESP 16–24; TEMP 97.6–98.8; O2SAT 95–97
[2017-01-31 04:43] LABS: AUTOMATED NEUTROPHIL # 3.5 TH/MM3 (1.8-7.7); BASOPHIL # 0.1 TH/MM3 (0-0.2); EOSINOPHIL # 0.2 TH/MM3 (0-0.4); EOSINOPHIL % 3.6 % (0.0-4.0); HEMATOCRIT 40.3 % (39.0-51.0); HEMO FLAGS DIFF FINAL; LYMPH % 26.3 % (9.0-44.0); LYMPHOCYTE # 1.6 TH/MM3 (1.0-4.8); MEAN CELL VOLUME 86.1 FL (80.0-100.0); MEAN CORPUSCULAR HEMOGLOBIN 30.4 PG (27.0-34.0); MEAN CORPUSCULAR HGB CONC 35.4 % (32.0-36.0); MONO % 11.9 % (0.0-8.0); NEUT % 57.2 % (16.0-70.0); PLATELET COUNT 182 TH/MM3 (150-450); RED BLOOD COUNT 4.68 MIL/MM3 (4.50-5.90); RED CELL DISTRIBUTION WIDTH 12.6 % (11.6-17.2); WHITE BLOOD COUNT 6.2 TH/MM3 (4.0-11.0)
[2017-01-31 04:53] LABS: APTT (PATIENT) 42.5 SEC (24.3-30.1)
[2017-01-31 05:11] LABS: ANION GAP 8 MEQ/L (5-15); AST (GOT) 14 U/L (15-37); BICARBONATE 22.8 MEQ/L (21.0-32.0); BLOOD UREA NITROGEN 11 MG/DL (7-18); CHLORIDE 109 MEQ/L (98-107); GLOMERULAR FILTRATION RATE 119 ML/MIN (>89); POTASSIUM 3.6 MEQ/L (3.5-5.1); SODIUM (NA) 140 MEQ/L (136-145)
[2017-01-31 05:12] LABS: ALT (GPT) 18 U/L (12-78)
[2017-01-31 05:14] LABS: ALKALINE PHOSPHATASE 89 U/L (45-117); TOTAL BILIRUBIN ADULT 0.8 MG/DL (0.2-1.0)
--- NOTE | 2017-01-31 05:47 | MB ---
cc: RUDY PAYNE DATE OF 1970. DATE OF CONSULTATION January 31, 2017 REASON FOR CONSULTATION Patient with a new diagnosis of lower extremity DVT and pulmonary embolism. CHIEF COMPLAINT Shortness of breath, chest discomfort. HISTORY OF PRESENT ILLNESS This is a 46-year-old male with a history of nephrolithiasis and no other major medical problems who presented to his primary care physician, Dr. Robles, with the complaints of chest discomfort and shortness of breath. He was placed on antibiotics but his symptoms did not improve. He was advised to present to the emergency room. Upon presentation he underwent a CT of the head without contrast which was unremarkable. A CT angiogram was also obtained to rule out any pulmonary embolism. He was found to have extensive pulmonary embolism involving bilateral upper lobe/ lower lobe pulmonary arteries in addition to bilateral main pulmonary arteries which was worse on the right. Subsequently he had a Doppler ultrasound of lower extremities. Extensive deep venous thrombosis was seen throughout the left lower extremity from the femoral bifurcation peripherally to the trifurcation tributaries. The thrombus was non-occlusive from the mid-SFV and centrally to the bifurcation. The patient was admitted to the hospital and he was placed on heparin drip. On admission the patient had a white blood cell count of 6.5, hemoglobin of 14.6 and platelet count of 162,000. His serum chemistries showed a normal creatinine. Normal calcium of 8.7. His troponins were slightly elevated at 0.27. The patient underwent an echocardiogram today which revealed a small pericardial effusion. There were no hemodynamically significant abnormalities. No free tamponade physiology. He had a normal ejection fraction. The patient is currently resting comfortably in bed. However, he does complain of some chest discomfort. He is slightly short of breath. He is not having lower extremity pain. 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 Overall he states that he is not very active and does not exercise regularly. He spends a lot of time sitting at a desk. He does not smoke cigarettes. No alcohol abuse. No illicit drug use. TRAVEL He has not had any prolonged travel recently. No known long car rides, no oral airline travel. He has not had any recent trauma. He denies any constitutional B symptoms. REVIEW OF SYSTEMS A comprehensive 14-point review of systems was completed which is negative except as described in the HPI. PAST MEDICAL HISTORY 1. Nephrolithiasis three years ago. 2. Seasonal allergies. SURGERIES None. MEDICATIONS AT HOME He only takes vitamins. INPATIENT MEDICATIONS Heparin GTT. ALLERGIES AZITHROMYCIN. FAMILY HISTORY Significant for diabetes. A son has asthma. There is no family history of blood clots or any other blood disorders. SOCIAL HISTORY He quit smoking approximately 12 years ago. No alcohol abuse. No illicit drug use. He is a professor at [employer]. PHYSICAL EXAMINATION VITAL SIGNS: Blood pressure is 130/86, pulse is in the 100s, temperature is 99.3. GENERAL: A well-developed, well-nourished man in no acute distress. HEAD, EYES, EARS, NOSE, AND THROAT: Pupils are equal, round, reactive to light. EOMI. No oral thrush. No oral lesions. NECK: Supple. No JVD, no bruits, no lymphadenopathy. CHEST: Chest is clear to auscultation bilaterally. CARDIAC: Tachycardic. S1, S2. Regular rate and rhythm. ABDOMEN: Abdomen is soft, non-tender, non-distended. Bowel sounds are present. EXTREMITIES: Extremities without any edema, erythema or cyanosis. SKIN: Without any petechiae, lesion or bruises. NEUROLOGIC: No focal deficits. PSYCHIATRIC: Mood and affect appropriate. LYMPH NODE EXAM: No significant lymphadenopathy. LABORATORY DATA WBC 6, hemoglobin 14.1, platelet count 164. Serum chemistries show a sodium of 141, potassium of 3.7, chloride 109, CO2 24, anion gap 8, BUN 9, creatinine 0.68, GFR is 126, glucose is 95, calcium is 8.4. The troponins have been trending down from 0.27 to 0.12 to 0.07. IMAGING Reviewed in the EMR and described in the HPI. 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 He presents to the emergency department with acute progressive dyspnea and chest discomfort. He was found to have extensive bilateral pulmonary embolism and left lower extremity extensive DVT. 1. Bilateral pulmonary embolism with as well as left lower extremity DVT in an unprovoked situation. He has not been on a prolonged car travel or air travel. No trauma to the lower extremities. He has not been on any medications that would provoke DVT. There are no apparent signs and symptoms of any malignancy. I would proceed with obtaining hypercoagulable workup; this would not change our management. This patient has a high thrombus burden. He is currently on heparin GTT. We will transition him to Eliquis 10 mg p.o. daily times x 7 days, followed by Eliquis 5 mg p.o. b.i.d. A hypercoagulable workup will be ordered. If he is medically stable, he can be discharged from the hospital. I will follow up with this patient in three weeks in my clinic. 2. Mild troponemia, likely from demand ischemia due to pulmonary embolism. He did have a 2-D echocardiogram which showed a normal ejection fraction with no wall motion abnormalities. There was no evidence of tamponade. There is a small pericardial effusion. I would defer further workup to the primary team. 3. For completeness sake, we will obtain a CMP tomorrow which will include liver functions and total bilirubin levels. Thank you for allowing me to participate in the care of this patient. I will continue to follow this patient along. MD FABRIZIO Garcia/RICARDO /1:06 AM /5:22 AM
[2017-01-31] MEDS: APIXABAN 5 MG TABLET PO SCH ×2 (08:06→20:52)
[2017-01-31] MEDS: SODIUM CHLORIDE 0.9% FLUSH 10 ML FLUSH IV FLUSH SCH ×2 (08:06→20:52)
--- NOTE | 2017-01-31 09:27 | PD.ONC.PN ---
Subjective Subjective Remarks Afebrile overnight. Patient resting in bed in nad. No complaints. No pain. Breathing okay. Ready to go home. Objective Data Date Time Temp Pulse Resp B/P (MAP) Pulse Ox O2 Delivery O2 Flow Rate FiO2 01/31/17 08:39 97.6 92 24 136/83 (100) 95 01/31/17 05:03 98.8 95 19 125/79 (94) 95 01/31/17 03:55 96 01/31/17 00:15 98 01/30/17 23:57 98.7 106 19 138/85 (102) 95 01/30/17 20:45 99.3 105 19 130/86 (101) 96 01/30/17 20:15 108 01/30/17 16:24 98.3 105 24 132/86 (101) 95 01/30/17 15:00 106 01/30/17 12:19 98.2 100 24 132/88 (103) 95 01/31/17 01/31/17 01/31/17 07:00 15:00 23:00 Intake Total 600 ml Balance 600 ml Result Diagram: 01/31/17 0422 01/31/17 0422 Laboratory Results Laboratory Tests Test 01/30/17 11:30 01/30/17 19:05 01/30/17 20:05 01/31/17 04:22 Activated Partial Thromboplast Time 33.6 SEC 33.0 SEC 29.9 SEC 42.5 SEC Troponin I 0.07 NG/ML White Blood Count 6.2 TH/MM3 Red Blood Count 4.68 MIL/MM3 Hemoglobin 14.3 GM/DL Hematocrit 40.3 % Mean Corpuscular Volume 86.1 FL Mean Corpuscular Hemoglobin 30.4 PG Mean Corpuscular Hemoglobin Concent 35.4 % Red Cell Distribution Width 12.6 % Platelet Count 182 TH/MM3 Mean Platelet Volume 7.8 FL Neutrophils (%) (Auto) 57.2 % Lymphocytes (%) (Auto) 26.3 % Monocytes (%) (Auto) 11.9 % Eosinophils (%) (Auto) 3.6 % Basophils (%) (Auto) 1.0 % Neutrophils # (Auto) 3.5 TH/MM3 Lymphocytes # (Auto) 1.6 TH/MM3 Monocytes # (Auto) 0.7 TH/MM3 Eosinophils # (Auto) 0.2 TH/MM3 Basophils # (Auto) 0.1 TH/MM3 CBC Comment DIFF FINAL Differential Comment Blood Urea Nitrogen 11 MG/DL Creatinine 0.71 MG/DL Random Glucose 103 MG/DL Total Protein 6.6 GM/DL Albumin 3.2 GM/DL Calcium Level 8.4 MG/DL Alkaline Phosphatase 89 U/L Aspartate Amino Transf (AST/SGOT) 14 U/L Alanine Aminotransferase (ALT/SGPT) 18 U/L Total Bilirubin 0.8 MG/DL Sodium Level 140 MEQ/L Potassium Level 3.6 MEQ/L Chloride Level 109 MEQ/L Carbon Dioxide Level 22.8 MEQ/L Anion Gap 8 MEQ/L Estimat Glomerular Filtration Rate 119 ML/MIN Culture Results Microbiology Date/Time Source Procedure Growth Status 01/29/17 18:00 Blood Peripheral Aerobic Blood Culture - Preliminary NO GROWTH IN 1 DAY Resulted 01/29/17 18:00 Blood Peripheral Anaerobic Blood Culture - Preliminary NO GROWTH IN 1 DAY Resulted 01/29/17 17:50 Blood Peripheral Aerobic Blood Culture - Preliminary NO GROWTH IN 1 DAY Resulted 01/29/17 17:50 Blood Peripheral Anaerobic Blood Culture - Preliminary NO GROWTH IN 1 DAY Resulted Administered Medications Medications (Trade) Dose Ordered Sig/Dmitry Route PRN Reason Start Time Stop Time Status Last Admin Dose Admin Sodium Chloride (NS Flush) 2 ml BID IV FLUSH 01/30/17 09:00 01/31/17 08:06 Apixaban (Eliquis) 10 mg BID PO 01/31/17 09:00 02/06/17 08:59 01/31/17 08:06 Objective Remarks GENERAL: Middle aged male upright in bed in nad SKIN: Warm and dry. HEAD: Normocephalic. EYES: No injection or drainage. NECK: Supple, trachea midline. CARDIOVASCULAR: Regular rate and rhythm RESPIRATORY: Breath sounds equal bilaterally. No accessory muscle use. GASTROINTESTINAL: Abdomen soft, non-tender, nondistended. EXTREMITIES: No cyanosis NEUROLOGICAL: No obvious focal deficit. Awake, alert, and oriented x3. Assessment/Plan Problem List: (1) Pulmonary embolism ICD Codes: I26.99 - Other pulmonary embolism without acute cor pulmonale Plan: on Eliquis --Bilateral pulmonary embolism +left lower extremity DVT in an unprovoked situation. -- hypercoagulable workup pending --face sheet faxed to new patient referrals for follow up in three weeks. --Eliquis 10 mg p.o. daily times x 7 days, followed by Eliquis 5 mg p.o. b.i.d. Assessment 46y/o male admitted with Chest pain/SOB and found to have lower extremity DVT and pulmonary embolism. h/o Nephrolithiasis three years ago. Plan 1. continue Eliquis 2. follow up in clinic once discharged. fs faxed to new patient referrals. Attending Statement The exam, history, and the medical decision-making described in the above note were completed with the assistance of the mid-level provider. I reviewed and agree with the findings presented. I attest that I had a [id number] encounter with the patient on the same day, and personally performed and documented my assessment and findings in the medical record. OK to d/c from hematology prespective f/u in clinic in 3-4 weeks Problem Qualifiers (1) Pulmonary embolism: Deepti Garg Jan 31, 2017 09:27 Antonio Bravo MD Jan 31, 2017 19:49
[2017-01-31 09:52] LABS: APTT (PATIENT) 33.2 SEC (24.3-30.1)
--- NOTE | 2017-01-31 17:51 | HHI.PR ---
Subjective History of Present Illness Patient feel better today no acute issue. S/P Venous doppler of lower extremity shows DVT Left lower extremity. Review of Systems Constitutional Constitutional Remarks All ROS Normal. Vitals/Results Vital Signs Vital Signs Date Time Temp Pulse Resp B/P (MAP) Pulse Ox O2 Delivery O2 Flow Rate FiO2 01/31/17 16:00 97.7 100 16 133/88 (103) 97 01/31/17 12:40 98.8 92 24 128/86 (100) 95 01/31/17 08:39 97.6 92 24 136/83 (100) 95 01/31/17 05:03 98.8 95 19 125/79 (94) 95 01/31/17 03:55 96 01/31/17 00:15 98 01/30/17 23:57 98.7 106 19 138/85 (102) 95 01/30/17 20:45 99.3 105 19 130/86 (101) 96 01/30/17 20:15 108 CBC/BMP: 01/31/17 0422 01/31/17 0422 Lab Results Laboratory Tests Test 01/30/17 19:05 01/30/17 20:05 01/31/17 04:22 01/31/17 08:59 Activated Partial Thromboplast Time 33.0 SEC 29.9 SEC 42.5 SEC 33.2 SEC White Blood Count 6.2 TH/MM3 Red Blood Count 4.68 MIL/MM3 Hemoglobin 14.3 GM/DL Hematocrit 40.3 % Mean Corpuscular Volume 86.1 FL Mean Corpuscular Hemoglobin 30.4 PG Mean Corpuscular Hemoglobin Concent 35.4 % Red Cell Distribution Width 12.6 % Platelet Count 182 TH/MM3 Mean Platelet Volume 7.8 FL Neutrophils (%) (Auto) 57.2 % Lymphocytes (%) (Auto) 26.3 % Monocytes (%) (Auto) 11.9 % Eosinophils (%) (Auto) 3.6 % Basophils (%) (Auto) 1.0 % Neutrophils # (Auto) 3.5 TH/MM3 Lymphocytes # (Auto) 1.6 TH/MM3 Monocytes # (Auto) 0.7 TH/MM3 Eosinophils # (Auto) 0.2 TH/MM3 Basophils # (Auto) 0.1 TH/MM3 CBC Comment DIFF FINAL Differential Comment Blood Urea Nitrogen 11 MG/DL Creatinine 0.71 MG/DL Random Glucose 103 MG/DL Total Protein 6.6 GM/DL Albumin 3.2 GM/DL Calcium Level 8.4 MG/DL Alkaline Phosphatase 89 U/L Aspartate Amino Transf (AST/SGOT) 14 U/L Alanine Aminotransferase (ALT/SGPT) 18 U/L Total Bilirubin 0.8 MG/DL Sodium Level 140 MEQ/L Potassium Level 3.6 MEQ/L Chloride Level 109 MEQ/L Carbon Dioxide Level 22.8 MEQ/L Anion Gap 8 MEQ/L Estimat Glomerular Filtration Rate 119 ML/MIN Physical Exam General General Appearance: Well Developed, Well Nourished, No Acute Distress, Comfortable Eyes Eye Exam: Pupils Equal, Pupils Reactive, Sclera White, Extraocular Movement Intact Throat Throat Exam: Oral Mucosa [place] & Moist, Oral Pharynx Normal Neck Neck Exam: Neck Supple, Trachea Midline Pulmonary Resp Exam: Clear Bilaterally, Breath Sounds Equal, No Distress Cardiology CV Exam: Regular, Normal Sinus Rhythm Gastrointestinal/Abdomen GI Exam: Soft, Non-Tender, Bowel Sounds Present Musculoskeletal MS Exam: Joints Intact Integumentary Skin Exam: Clear, Warm, Dry, Intact, Normal Turgor Extremeties Extremities Exam: No Edema Neurologic Neuro Exam: Alert, Awake, Oriented, Speech Clear, Moving All Extremities, Cardiac Rn Equal, No Focal Deficits Psychiatric Psych Exam: Appropriate Responses VTE Prophylaxis VTE Prophylaxis Meds: Heparin PUD Prophylasis PUD Prophylaxis: Protonix Assessment/Plan Problem List: (1) Pulmonary embolism ICD Codes: I26.99 - Other pulmonary embolism without acute cor pulmonale Assessment/Plan Assessment and Plan (1) Pulmonary embolism ICD Code: Other pulmonary embolism without acute cor pulmonale Assessment and Plan 46 year-old male with progressively worsening shortness of breath: Bilateral pulmonary embolism, extensive - CT PA showed extensive bilateral PE - On Eliquis 10 mg PO BID. - bed rest - monitor vital signs q4h - bariatric program coordinator input noted \ hypercoagulability work up in progress. - continuous cardiac telemetry to monitor for cardiac arrhythmias and to monitor heart rate - bilateral lower extremity Doppler shows left lower extremity DVT Syncope secondary to extensive PE Troponin I elevation likely secondary to right heart strain - check echocardiogram to evaluate cardiac structure and function given suspected right heart strain - Check CBC with diff CMP in AM. Discussed Condition with: Patient Problem Qualifiers (1) Pulmonary embolism: Noel Robles MD Jan 31, 2017 17:51
[2017-02-01] VITALS: BP 130/85; PULSE 91; RESP 20; TEMP 97.7; O2SAT 92
[2017-02-01 04:00] VITALS: BP 116/58; PULSE 94; RESP 20; TEMP 97.5; O2SAT 97
[2017-02-01 08:00] VITALS: BP 127/82; PULSE 86; PULSE 88; RESP 18; TEMP 97.6; O2SAT 95
[2017-02-01] MEDS: APIXABAN 5 MG TABLET PO SCH (08:56)
[2017-02-01] MEDS: SODIUM CHLORIDE 0.9% FLUSH 10 ML FLUSH IV FLUSH SCH (09:00)
--- NOTE | 2017-02-01 09:04 | HHI.PR ---
Subjective History of Present Illness Patient feel better today no acute issue. S/P Venous doppler of lower extremity shows DVT Left lower extremity. ok to discharge per oncology Discussed with Dr Bravo Oncologist. Review of Systems Constitutional Constitutional Remarks All ROS Normal. Vitals/Results Vital Signs Vital Signs Date Time Temp Pulse Resp B/P (MAP) Pulse Ox O2 Delivery O2 Flow Rate FiO2 02/01/17 04:00 97.5 94 20 116/58 (77) 97 02/01/17 00:00 97.7 91 20 130/85 (100) 92 01/31/17 20:00 Room Air 01/31/17 20:00 98 01/31/17 20:00 97.8 94 16 133/84 (100) 96 01/31/17 16:00 97.7 100 16 133/88 (103) 97 01/31/17 12:40 98.8 92 24 128/86 (100) 95 CBC/BMP: 01/31/17 0422 01/31/17 0422 Physical Exam General General Appearance: Well Developed, Well Nourished, No Acute Distress, Comfortable Eyes Eye Exam: Pupils Equal, Pupils Reactive, Sclera White, Extraocular Movement Intact Throat Throat Exam: Oral Mucosa [place] & Moist, Oral Pharynx Normal Neck Neck Exam: Neck Supple, Trachea Midline Pulmonary Resp Exam: Clear Bilaterally, Breath Sounds Equal, No Distress Cardiology CV Exam: Regular, Normal Sinus Rhythm Gastrointestinal/Abdomen GI Exam: Soft, Non-Tender, Bowel Sounds Present Musculoskeletal MS Exam: Joints Intact Integumentary Skin Exam: Clear, Warm, Dry, Intact, Normal Turgor Extremeties Extremities Exam: No Edema Neurologic Neuro Exam: Alert, Awake, Oriented, Speech Clear, Moving All Extremities, Library Historian Equal, No Focal Deficits Psychiatric Psych Exam: Appropriate Responses VTE Prophylaxis VTE Prophylaxis Meds: Heparin PUD Prophylasis PUD Prophylaxis: Protonix Assessment/Plan Problem List: (1) Pulmonary embolism ICD Codes: I26.99 - Other pulmonary embolism without acute cor pulmonale Assessment/Plan Assessment and Plan (1) Pulmonary embolism ICD Code: Other pulmonary embolism without acute cor pulmonale Assessment and Plan 46 year-old male with progressively worsening shortness of breath: Bilateral pulmonary embolism, extensive - CT PA showed extensive bilateral PE - On Eliquis 10 mg PO BID. - bed rest - monitor vital signs q4h - vegetable tier input noted \ hypercoagulability work up in progress. - continuous cardiac telemetry to monitor for cardiac arrhythmias and to monitor heart rate - bilateral lower extremity Doppler shows left lower extremity DVT Syncope secondary to extensive PE Troponin I elevation likely secondary to right heart strain - check echocardiogram to evaluate cardiac structure and function given suspected right heart strain - OK to discharge home today ok per oncology d/ w Dr Bravo need Eliquis 10 mg PO BID X 7 Days and then 5 mg PO BID F/U with PCP/ Oncology 1 week. Discussed Condition with: Patient Problem Qualifiers (1) Pulmonary embolism: Noel Robles MD Feb 01, 2017 09:04
[2017-02-01 09:51] LABS: BASOPHIL # 0.1 TH/MM3 (0-0.2); EOSINOPHIL # 0.2 TH/MM3 (0-0.4); EOSINOPHIL % 4.5 % (0.0-4.0); HEMATOCRIT 41.1 % (39.0-51.0); HEMO FLAGS DIFF FINAL; LYMPH % 24.3 % (9.0-44.0); LYMPHOCYTE # 1.2 TH/MM3 (1.0-4.8); MEAN CELL VOLUME 86.3 FL (80.0-100.0); MEAN CORPUSCULAR HEMOGLOBIN 30.7 PG (27.0-34.0); MEAN CORPUSCULAR HGB CONC 35.5 % (32.0-36.0); MONO % 11.3 % (0.0-8.0); NEUT % 58.9 % (16.0-70.0); PLATELET COUNT 210 TH/MM3 (150-450); RED BLOOD COUNT 4.76 MIL/MM3 (4.50-5.90); RED CELL DISTRIBUTION WIDTH 12.5 % (11.6-17.2)
[2017-02-01] MEDS ORDERED: INFLUENZA VIRUS VACCINE (QUADRIVALENT) 0.5 ML SYR IM ONE (10:00)
[2017-02-01 10:18] LABS: ANION GAP 7 MEQ/L (5-15); AST (GOT) 21 U/L (15-37); BICARBONATE 23.3 MEQ/L (21.0-32.0); BLOOD UREA NITROGEN 10 MG/DL (7-18); CHLORIDE 109 MEQ/L (98-107); GLOMERULAR FILTRATION RATE 118 ML/MIN (>89); POTASSIUM 3.8 MEQ/L (3.5-5.1); SODIUM (NA) 139 MEQ/L (136-145)
[2017-02-01 10:24] LABS: ALKALINE PHOSPHATASE 89 U/L (45-117); ALT (GPT) 23 U/L (12-78); TOTAL BILIRUBIN ADULT 0.9 MG/DL (0.2-1.0)
[2017-02-01 12:00] VITALS: BP 127/82; PULSE 93; RESP 18; TEMP 98.1; O2SAT 95
[2017-02-01] MEDS ORDERED: APIX5TAB PO (14:50)
--- NOTE | 2017-02-01 23:17 | PD.ONC.PN ---
Subjective Subjective Remarks O2 sats mid-high 90s no dyspnea chest discomfort better case discussed with Dr. Robles continue Eliquis 10mg po BID X 7 days then eliquis 5mg PO BID f/u with me in clinic in 1-2 weeks Objective Data Date Time Temp Pulse Resp B/P (MAP) Pulse Ox O2 Delivery O2 Flow Rate FiO2 02/01/17 12:00 98.1 93 18 127/82 (97) 95 02/01/17 08:00 86 02/01/17 08:00 Room Air 02/01/17 08:00 97.6 88 18 127/82 (97) 95 02/01/17 04:00 97.5 94 20 116/58 (77) 97 02/01/17 00:00 97.7 91 20 130/85 (100) 92 Result Diagram: 02/01/17 0838 02/01/17 0838 Laboratory Results Laboratory Tests Test 02/01/17 08:38 White Blood Count 5.0 TH/MM3 Red Blood Count 4.76 MIL/MM3 Hemoglobin 14.6 GM/DL Hematocrit 41.1 % Mean Corpuscular Volume 86.3 FL Mean Corpuscular Hemoglobin 30.7 PG Mean Corpuscular Hemoglobin Concent 35.5 % Red Cell Distribution Width 12.5 % Platelet Count 210 TH/MM3 Mean Platelet Volume 8.0 FL Neutrophils (%) (Auto) 58.9 % Lymphocytes (%) (Auto) 24.3 % Monocytes (%) (Auto) 11.3 % Eosinophils (%) (Auto) 4.5 % Basophils (%) (Auto) 1.0 % Neutrophils # (Auto) 3.0 TH/MM3 Lymphocytes # (Auto) 1.2 TH/MM3 Monocytes # (Auto) 0.6 TH/MM3 Eosinophils # (Auto) 0.2 TH/MM3 Basophils # (Auto) 0.1 TH/MM3 CBC Comment DIFF FINAL Differential Comment Blood Urea Nitrogen 10 MG/DL Creatinine 0.72 MG/DL Random Glucose 84 MG/DL Total Protein 6.9 GM/DL Albumin 3.3 GM/DL Calcium Level 8.8 MG/DL Alkaline Phosphatase 89 U/L Aspartate Amino Transf (AST/SGOT) 21 U/L Alanine Aminotransferase (ALT/SGPT) 23 U/L Total Bilirubin 0.9 MG/DL Sodium Level 139 MEQ/L Potassium Level 3.8 MEQ/L Chloride Level 109 MEQ/L Carbon Dioxide Level 23.3 MEQ/L Anion Gap 7 MEQ/L Estimat Glomerular Filtration Rate 118 ML/MIN Objective Remarks GENERAL: nad SKIN: Warm and dry NECK: Supple, trachea midline. No JVD or lymphadenopathy. LYMPHATIC: No adenopathy. CARDIOVASCULAR: Regular rate and rhythm without murmurs. RESPIRATORY: Breath sounds equal bilaterally. No accessory muscle use. GASTROINTESTINAL: Abdomen soft, non-tender, nondistended. EXTREMITIES: No cyanosis, or edema. Assessment/Plan Problem List: (1) Pulmonary embolism ICD Codes: I26.99 - Other pulmonary embolism without acute cor pulmonale Plan: on Eliquis --Bilateral pulmonary embolism +left lower extremity DVT in an unprovoked situation. -- hypercoagulable workup pending --face sheet faxed to new patient referrals for follow up in three weeks. --Eliquis 10 mg p.o. daily times x 7 days, followed by Eliquis 5 mg p.o. b.i.d. Assessment 46y/o male admitted with Chest pain/SOB and found to have lower extremity DVT and pulmonary embolism. h/o Nephrolithiasis three years ago. Plan 1. continue Eliquis 2. follow up in clinic once discharged. Problem Qualifiers (1) Pulmonary embolism: Antonio Bravo MD Feb 01, 2017 23:17
--- NOTE | 2017-02-02 18:47 | MD ---
cc: NOEL LIN MD ADMISSION DATE: 01/29/2017 DISCHARGE DATE: 02/01/2017 DISPOSITION: Okay to discharge patient. CONDITION AT THE TIME OF DISCHARGE: Satisfactory. DISCHARGE ACTIVITY: As tolerated. DISCHARGE DIET: Cardiac diet. ALLERGIES: ERYTHROMYCIN. DISCHARGE MEDICATIONS: 1. Eliquis 10 milligrams twice a day for 6 days and then start Eliquis 5 milligrams twice a day per Hematology/Oncology recommendations. FOLLOW UP: The patient was advised to follow up with his primary care physician and oncology in one week. ADMITTING DIAGNOSIS: 1. Syncopal episode secondary to pulmonary embolism. 2. Bilateral pulmonary embolism. 3. Venous Doppler positive for left lower extremity DVT. HOSPITAL COURSE: This is a 46-year-old male admitted with syncopal episode and diagnosed with bilateral pulmonary embolism. The patient had a venous Doppler that was done for lower extremity and showed left lower extremity DVT. Dr. Bolaños saw the patient during the hospital stay. The patient was initially on heparin and the patient also had some shortness of breath which was resolved and chest discomfort. The patient had a 2-D echocardiogram done that showed a normal ejection fraction with no wall motion abnormality and no evidence of tamponade. There is a small pericardial effusion. The patient had hypercoagulable workup ordered and the results were still pending. The patient was advised to follow up with oncology for the hypercoagulable workup. The patient's CBC was normal. Basic metabolic profile showed chloride of 109 which was high. PT and APTT were 33.0. The patient's [facility] screen was negative. The rest of the hypercoagulable workup was pending. Further details in the medical record. Noel Lin MD EA/LYNETTE /2:52 PM /6:33 PM
[2017-02-03 03:50] LABS: THROMBIN TIME FOR LA ND sec (13-19)
[2017-02-07] MEDS ORDERED: APIXABAN 5 MG TABLET PO SCH (09:00)
== END 2017-02-01 16:46 | disposition home or self-care (01) | DRG 175 ==
LOC: NEPE 17:04 → NEDA 22:16 → NEPHCDU 01-30 00:29 → N04B 01-31 14:09
PROVIDERS: ADMIT Family Medicine; ATTEND Family Medicine
PROC: 3E0F7GC Introduction of Other Therapeutic Substance into Respiratory Tract, Via Natural or Artificial Opening (ICD-10-PCS; principal; 2017-01-29)
DX: I26.99 Other pulmonary embolism without acute cor pulmonale (principal); J18.9 Pneumonia, unspecified organism; I24.8 Other forms of acute ischemic heart disease; I31.3 Pericardial effusion (noninflammatory); I82.402 Acute embolism and thrombosis of unspecified deep veins of left lower extremity; R55 Syncope and collapse; S00.03XA Contusion of scalp, initial encounter; W18.30XA Fall on same level, unspecified, initial encounter; Y99.9 Unspecified external cause status; R00.0 Tachycardia, unspecified; Z87.891 Personal history of nicotine dependence; Z87.442 Personal history of urinary calculi; Z83.3 Family history of diabetes mellitus; Z23 Encounter for immunization
CPT/HCPCS: 70450; 71275; 80048; 80053; 81240; 81241; 81291; 83090; 84484; 85025; 85027; 85240; 85300; 85303; 85306; 85307; 85598; 85610; 85613; 85730; 86038; 86146; 86147; 86148; 87040; 90686; 93005; 93306; 93970; 96374; J1644; Q2038; Q9967